=== PATIENT | male | born 1960 | race Two or more races ===

== ENCOUNTER 2022-10-29 05:00 | Day surgery (SDC) | payer OTHER ==
[~2022-10-29] VITALS: Ht 167.6 cm; Wt 81.6 kg
[~2022-10-29 05:00] MED LIST: ATACAND HCT 321 EACH PO; D3 + K2 DOTS 11 EACH PO; NORVASC5 MG PO
[2022-10-29] MEDS ORDERED: COLACE100 MG PO (09:03)
[2022-10-29] MEDS ORDERED: NEURONTIN300 MG PO (09:03)
[2022-10-29] MEDS ORDERED: PERCOCET 5-3251 EACH PO (09:03)
== END 2022-10-29 11:20 | disposition home or self-care (01) ==
LOC: CIR.AMB 05:00
PROVIDERS: ATTEND Surgery
DX: K62.89 Other specified diseases of anus and rectum (principal); K64.8 Other hemorrhoids; K64.1 Second degree hemorrhoids; K62.5 Hemorrhage of anus and rectum; Z20.822 Contact with and (suspected) exposure to COVID-19; I10 Essential (primary) hypertension